=== PATIENT | female | born 1995 | race Asian ===

== ENCOUNTER 2021-02-17 23:12 | Emergency (ER) | payer OTHER ==
[~2021-02-17] VITALS: Ht 149.9 cm; Wt 68.6 kg
[2021-02-17] MEDS ORDERED: ESCI20TA87 PO (23:28)
[2021-02-17] MEDS ORDERED: METO25 PO (23:28)
[2021-02-18 00:45] VITALS: BP 135/78
[2021-02-18 01:46] LABS: INFLUENZA TYPE A NEGATIVE FOR TYPE A (NEGATIVE); INFLUENZA TYPE B NEGATIVE FOR TYPE B (NEGATIVE)
== END 2021-02-18 01:23 | disposition home or self-care (01) ==
LOC: EMS 23:13
DX: J02.9 Acute pharyngitis, unspecified (principal); R05.9 Cough, unspecified; R09.81 Nasal congestion; F41.9 Anxiety disorder, unspecified; I10 Essential (primary) hypertension; Z20.822 Contact with and (suspected) exposure to COVID-19
CPT/HCPCS: 87804; 99283; U0003